=== PATIENT | female | born 1935 | race Caucasian/White ===

== ENCOUNTER 2017-07-31 14:18 | Day surgery (SDC) | payer MEDICARE ==
[~2017-07-31 14:18] MED LIST: AMLO10 PO; ASPI81TA82 PO; LEVO50TA4 PO; METF500 PO; ZOCO10TA PO
[2017-07-31] MEDS ORDERED: ASPI-516 CHEW (14:38)
[2017-07-31] MEDS ORDERED: AMLO10TA2 PO (14:38)
[2017-07-31] MEDS ORDERED: LISI2.5T3 PO (14:38)
[2017-07-31] MEDS ORDERED: SIMV20TA PO (14:38)
[2017-07-31] MEDS ORDERED: LEVO50TA4 PO (14:38)
[2017-07-31 14:43] VITALS: BP 163/69; PULSE 77; RESP 20; TEMP 97.6; O2SAT 96
--- NOTE | 2017-07-31 16:10 | RADRPT ---
EXAM DATE/TIME: 07/31/2017 14:46 [facility] COMPARISON : No previous studies available for comparison. 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 Patient reportedly was diagnosed with hepatocellular carcinoma (no biops y) approximately 11 years ago and underwent at least one TACE procedure. Surveillance MRI examination s have demonstrated stable hepatic lesions with most recent MRI examination demonstrating a new exoph ytic 13 mm segment 5 mass. AFP is 11.7. LFT is normal. She has no complaints. ECOG 0. PAST MEDICAL HISTORY : 1. Hepatitis C. 2. Hypercholesterolemia. 3. Hypertension. 4. Diabetes type 2. 5. Carcinoma, hepatocellular. PAST SURGICAL HISTORY : 1. Cholecystectomy. 2. TACE 3. LIVER BIOPSY SOCIAL HISTORY : No alcohol use. Tobacco; ALLERGIES: 1. NKDA MEDICATIONS: 1. [id number] mg q.d. 2. Zocor (Simvastatin) 20 mg q.d. 3. Prinivil (Lisinopril) 2.5 mg q.d. 4. AMLODIPINE 10 mg q.d. 5. LEVTHYROXINE 50 mcg q.d. IMAGING STUDIES: MRI examinations dated 06/17/2017 and 11/03/2016 were reviewed. Again, there are 3 stable bilobar hepat ic lesions and a new 13 mm exophytic segment 5 lesion with enhancing capsule. Portal vein is patent. ASSESSMENT: 81 year-old female with history of hep C cirrhosis. Her HEP C has been treated but she now has a new concerning 13 mm mass in segment 5 of the liver. She was remotely (approx 11 years ago) treated with TACE for hepatocellular carcinoma although this was not biopy proven and details are not available. S he has an excellent functional status and intact liver function. She is also highly motivated to purs ue treatment. She's an ideal candidate for locoregional treatment. Given the small size, recommend st arting with RADHA-TACE procedure with potential ablation depending on findings during hepatic angiograp hy and her response. Extensive conversation regarding treatment options as well as risks and benefits of locoregional garima tment. All questions were answered. PLAN: Superselective RADHA-TACE embolization. TIME SPENT: 30 minutes. Jorden Campoverde MD on July 31, 2017 at 15:42 Board Certified Radiologist. This report was verified electronically.
== END 2017-07-31 15:36 | disposition home or self-care (01) ==
LOC: HROP 14:18 → HRIP 14:19 → HROP 15:36
PROVIDERS: ATTEND Internal Medicine Hematology & Oncology
DX: C22.0 Liver cell carcinoma (principal)

== ENCOUNTER 2017-08-06 06:31 | Day surgery (SDC) | payer MEDICARE ==
[2017-08-06] VITALS (10 sets, daily range): BP systolic 119–183; BP diastolic 66–83; PULSE 67–86; RESP 17–20; TEMP 97.6–98; O2SAT 95–98
[~2017-08-06] VITALS: Ht 154.9 cm; Wt 47.7 kg
[~2017-08-06 06:31] MED LIST changes: -AMLO10 PO; +AMLO10TA2 PO; +ASPI-516 CHEW; -ASPI81TA82 PO; +LISI2.5T3 PO; -METF500 PO; +SIMV20TA PO; -ZOCO10TA PO
[2017-08-06] MEDS ORDERED: IODIXANOL 320 MG/ML 50 ML VIAL (for RAD SPEC) I-ARTERIAL ONE (06:32)
[2017-08-06] MEDS ORDERED: SODIUM CHLOR 0.9% 1000 ML INJ 1,000 ML IV SCH (07:15)
[2017-08-06 07:42] LABS: AUTOMATED NEUTROPHIL # 5.9 TH/MM3 (1.8-7.7); BASOPHIL % 0.4 % (0.0-2.0); EOSINOPHIL # 0.1 TH/MM3 (0-0.4); EOSINOPHIL % 1.8 % (0.0-4.0); HEMATOCRIT 46.2 % (35.0-46.0); HEMOGLOBIN 15.3 GM/DL (11.6-15.3); LYMPHOCYTE # 1.5 TH/MM3 (1.0-4.8); MEAN CELL VOLUME 88.2 FL (80.0-100.0); MEAN CORPUSCULAR HEMOGLOBIN 29.3 PG (27.0-34.0); MEAN CORPUSCULAR HGB CONC 33.2 % (32.0-36.0); MEAN PLATELET VOLUME 8.2 FL (7.0-11.0); MONO % 8.4 % (0.0-8.0); MONOCYTE # 0.7 TH/MM3 (0-0.9); NEUT % 71.4 % (16.0-70.0); PLATELET COUNT 238 TH/MM3 (150-450); RED BLOOD COUNT 5.24 MIL/MM3 (4.00-5.30); RED CELL DISTRIBUTION WIDTH 14.1 % (11.6-17.2); WHITE BLOOD COUNT 8.2 TH/MM3 (4.0-11.0)
[2017-08-06 07:52] LABS: PROTHROMBIN TIME - PATIENT 10.1 SEC (9.8-11.6)
[2017-08-06 08:09] LABS: BICARBONATE 24.1 MEQ/L (21.0-32.0); CALCIUM 9.3 MG/DL (8.5-10.1); CREATININE 0.8 MG/DL (0.50-1.00)
[2017-08-06] MEDS: SODIUM CHLOR 0.9% 1000 ML INJ 1,000 ML IV SCH ×2 (10:24→17:40)
[2017-08-06] MEDS ORDERED: DOXOrubicin HCL 10 MG/5 ML INJ OTHER ONE (10:30)
[2017-08-06] MEDS ORDERED: PANTOPRAZOLE SODIUM 40 MG VIAL IV PUSH ONE (11:00)
[2017-08-06] MEDS ORDERED: ceFAZolin 1,000 MG/NS 100 ML IV ONE ×2 (11:00)
[2017-08-06] MEDS ORDERED: DEXAMETHASONE SOD PHOS 20 MG/5 ML VIAL IV ONE (11:00)
[2017-08-06] MEDS ORDERED: KETOROLAC TROMETHAMINE 30 MG/ML (IVP) VIAL IV PUSH ONE (11:00)
[2017-08-06] MEDS ORDERED: ONDANSETRON HCL 4 MG/2 ML VIAL IV PUSH ONE (11:00)
[2017-08-06] MEDS ORDERED: MIDAZOLAM HCL 2 MG/2 ML VIAL ONE (11:19)
[2017-08-06] MEDS ORDERED: VERAPAMIL HCL 5 MG/2 ML VIAL ONE (11:19)
[2017-08-06] MEDS ORDERED: fentaNYL CITRATE 250 MCG/5 ML AMP ONE (11:19)
[2017-08-06] MEDS ORDERED: NITROGLYCERIN 1000 MCG/5 ML VIAL OTHER ONE (12:30)
--- NOTE | 2017-08-06 15:56 | PD.RAD ---
Post Procedure Progress Note Pre Procedure Diagnosis: (1) HCC (hepatocellular carcinoma) Post Procedure Diagnosis: (1) HCC (hepatocellular carcinoma) Procedure Date: Aug 06, 2017 Supervising Radiologist: Jorden Campoverde Anesthesia: Conscious Sedation Plan of Activity Patient to Unit: [facility] Patient Condition: Good See PACS Report for procedural detail/treatment Jorden Campoverde MD Aug 06, 2017 15:56
[2017-08-06] MEDS ORDERED: MORPHINE SULFATE 2 MG/ML SYRINGE IV PUSH PRN (16:00)
[2017-08-06] MEDS ORDERED: PILL SPLITTER OTHER PRN (16:00)
[2017-08-06] MEDS ORDERED: ONDANSETRON HCL 4 MG/2 ML VIAL IV PUSH PRN (16:00)
--- NOTE | 2017-08-06 16:11 | PD.CONS ---
HPI Service [facility] Consult Requested By Dr. Baltazar Reason for Consult Medical management Primary Care Physician Chavo Mccallum MD, PhD Diagnoses: History of Present Illness The patient is a 81-year-old female with past medical history of hepatitis C and hepatocellular carcinoma who is presenting to the hospital for voluntary chemoembolization by interventional radiology. The patient says that she had her hepatitis C treated but that led to the development of hepatocellular carcinoma. She follows with her oncologist regularly and during a routine visit a new mass was found on the liver. That was about 6 weeks ago. The patient has been experiencing discomfort in that area which gets worse at night. She also has been endorsing abdominal distention. She was referred to interventional radiology and the procedure was scheduled for 08/06/2017. The patient tolerated the procedure well. She denies any pain at this time. She tolerated a diet without difficulty. Discussed with nursing at the bedside. Review of Systems Except as stated in HPI: all other systems reviewed are Neg Past Family Social History Allergies: Coded Allergies: No Known Allergies (Unverified Allergy, Unknown, 08/06/17) Past Medical History Hepatitis C s/p treatment HTN HLP Hypothyroidism Cholecystitis Hepatocellular carcinoma DM2 Past Surgical History TACE procedure Appendectomy Cholecystectomy Liver surgery Breast biopsy Active Ordered Medications Current Medications Medications (Trade) Dose Ordered Sig/Carmen Route Start Time Stop Time Status Last Admin Sodium Chloride 1,000 ml @ 100 mls/hr Q10H IV 08/06/17 07:15 08/06/17 17:14 08/06/17 07:15 Sodium Chloride 1,000 ml @ 150 mls/hr Q6H40M IV 08/06/17 11:00 08/06/17 10:24 (Norvasc) 10 mg DAILY PO 08/07/17 09:00 (Synthroid) 50 mcg DAILY@0600 PO 08/07/17 06:00 (Prinivil) 2.5 mg DAILY PO 08/07/17 09:00 (Pravachol) 40 mg DAILY PO 08/07/17 09:00 (Pill Splitter) 1 ea UNSCH PRN OTHER 08/06/17 16:00 (Zofran Inj) 4 mg Q6HR PRN IV PUSH 08/06/17 16:00 (Morphine Inj) 2 mg Q4H PRN IV PUSH 08/06/17 16:00 (Protonix Inj) 40 mg Q24H IV PUSH 08/07/17 11:00 Family History The patient said that her father from some abdominal organ disease Social History The patient still smokes cigarettes. She has a glass of wine occasionally. Physical Exam Vital Signs Vital Signs Date Time Temp Pulse Resp B/P (MAP) Pulse Ox O2 Delivery O2 Flow Rate FiO2 08/06/17 15:30 Room Air 98 08/06/17 15:30 79 20 153/81 (105) 98 08/06/17 15:00 74 20 135/75 (95) 98 08/06/17 15:00 Nasal Cannula 2.00 98 08/06/17 14:30 70 20 119/69 (86) 98 08/06/17 14:30 Nasal Cannula 2.00 98 08/06/17 14:05 74 20 140/82 (101) 97 08/06/17 13:50 67 20 141/67 (91) 98 08/06/17 13:35 Nasal Cannula 2.00 98 08/06/17 13:35 97.6 70 20 144/66 (92) 98 08/06/17 07:29 Room Air 96 08/06/17 06:54 97.9 79 20 149/74 (99) 96 Physical Exam GENERAL: This is a well-nourished, well-developed patient, in no apparent distress. SKIN: No rashes, ecchymoses or lesions. Cool and dry. HEAD: Atraumatic. Normocephalic. No temporal or scalp tenderness. EYES: Pupils equal round and reactive. Extraocular motions intact. No scleral icterus. No injection or drainage. ENT: Nose without bleeding, purulent drainage or septal hematoma. Throat without erythema, tonsillar hypertrophy or exudate. Uvula midline. Airway patent. NECK: Trachea midline. No JVD or lymphadenopathy. Supple, nontender, no meningeal signs. CARDIOVASCULAR: Regular rate and rhythm without murmurs, gallops, or rubs. RESPIRATORY: Clear to auscultation. Breath sounds equal bilaterally. No wheezes , rales, or rhonchi. GASTROINTESTINAL: Abdomen soft, non-tender, nondistended. No hepato-splenomegaly , or palpable masses. No guarding. MUSCULOSKELETAL: Extremities without clubbing, cyanosis, or edema. No joint tenderness, effusion, or edema noted. NEUROLOGICAL: Awake and alert. Cranial nerves II through XII intact. Motor and sensory grossly within normal limits. Five out of 5 muscle strength in all muscle groups. Normal speech. PSYCH: Mood and affect appropriate. Laboratory Laboratory Tests Test 08/06/17 07:32 White Blood Count 8.2 Red Blood Count 5.24 Hemoglobin 15.3 Hematocrit 46.2 Mean Corpuscular Volume 88.2 Mean Corpuscular Hemoglobin 29.3 Mean Corpuscular Hemoglobin Concent 33.2 Red Cell Distribution Width 14.1 Platelet Count 238 Mean Platelet Volume 8.2 Neutrophils (%) (Auto) 71.4 Lymphocytes (%) (Auto) 18.0 Monocytes (%) (Auto) 8.4 Eosinophils (%) (Auto) 1.8 Basophils (%) (Auto) 0.4 Neutrophils # (Auto) 5.9 Lymphocytes # (Auto) 1.5 Monocytes # (Auto) 0.7 Eosinophils # (Auto) 0.1 Basophils # (Auto) 0.0 CBC Comment DIFF FINAL Differential Comment Prothrombin Time 10.1 Prothromb Time International Ratio 1.0 Activated Partial Thromboplast Time 28.3 Blood Urea Nitrogen 19 Creatinine 0.80 Random Glucose 121 Calcium Level 9.3 Sodium Level 136 Potassium Level 3.8 Chloride Level 104 Carbon Dioxide Level 24.1 Anion Gap 8 Estimat Glomerular Filtration Rate 69 Result Diagram: 08/06/1732 08/06/1732 Assessment and Plan Assessment and Plan New liver mass The patient was brought to the hospital for voluntary chemoembolization performed by interventional radiology. The patient tolerated the procedure well. - Keep the patient for observation. - Follow-up with interventional radiology and oncology as an outpatient. - Pain control as needed. - ADAT. - check LFTs in the AM. DM Glucose well controlled. - monitor with an insulin sliding scale. HTN Blood pressure mildly elevated. - resume home regimen. - pain control. PPx: Per IR Discussed Condition With Pt, nurse Kvng Miller DO Aug 06, 2017 16:11
--- NOTE | 2017-08-06 16:14 | RADRPT ---
EXAM DATE/TIME: 08/06/2017 11:58 [facility] COMPARISON: No previous studies available for comparison. INDICATIONS : 81 year-old female with history of hepatitis C cirrhosis and 13 mm segment 5 mass. She was seen and e valuated in the interventional radiology clinic and now presents for RADHA-TACE chemoembolization. MEDICAL HISTORY : Hep B and C HTN Liver cancer DM Smoker SURGICAL HISTORY : Tonsillectomy Appy Ovarian sx ENCOUNTER: Initial ACUITY: 2 weeks PAIN SCORE: 0/10 LOCATION: N/A FLUORO TIME: 20.0 minutes IMAGE SERIES: 8 ACCESS SITE: Left Radial artery SEDATION TIME: 90 minutes CONTRAST: 1.) 70 cc Visipaque (iodixanol) MEDICATION(S): 1.) 2 mg midazolam (Versed) IV 2.) 100 mcg fentanyl (Sublimaze) IV 3.) 400 mcg Nitroglycerine IV 4.) 4 mg Verapamil IV DEVICE(S): 1.) Right hepatic artery chemo (adriamycin) injection PROCEDURE : 1. Ultrasound-guided puncture of the access site. 2. Conscious sedation with continuous EKG and oximetry monitoring. 3. Selective catheter placement in the celiac artery with selective angiography 4. Selective catheter placement in the common hepatic artery with selective angiography 5. Subselective catheter placement in the right hepatic artery was subselected and angiography 6. RADHA TACE superselective embolization of segment 5 right hepatic artery The risks, benefits and alternatives to the procedure were explained and verbal and written consent w as obtained. The site was prepped in sterile fashion. Full sterile technique was used, including ca p, mask, sterile gloves and gown and a large sterile sheet. Hand hygiene and 2% chlorhexidine and/or betadine/alcohol prep was utilized per protocol for cutaneous antisepsis. Sterile gel and sterile p robe cover were utilized for ultrasound guidance. The skin and subcutaneous tissues were infiltrated with local anesthetic solution. With ultrasound and fluoroscopic guidance the prescribed common femoral artery was punctured and a va scular sheath was placed. A 5 Indonesian Mendiola catheter was advanced into the celiac artery and angiograp hy was performed. This demonstrated standard celiac anatomy with evidence for prior embolization of t he gastroduodenal artery. Catheter was advanced into the common hepatic artery and angiography was ag ain performed. This demonstrated an enhancing mass in the inferior right lobe of the liver correspond ing to the known 13 mm exophytic mass in segment 5. Renegade microcatheter was then advanced into the posterior right hepatic artery branch and angiography performed in multiple obliquities. This again confirmed the findings although there was less prominent enhancement. Next, the posterior right hepat ic branches were embolized with approximately 20% of the 75-150 m Carlee beads infused with 75 mg Kristel amycin. Embolization was performed to stasis. Followup angiography demonstrated stasis of flow in the M1 branches with patent flow in the remaining right hepatic branches. Wires and catheters were then removed. Sheath was removed and hemostasis obtained with TR band device. Conscious sedation was performed with the prescribed dosages and duration as above in the presence of an independent trained radiology nurse to assist in the monitoring of the patient. EKG and oximetry remained stable throughout the procedure. CONCLUSION: 1. Uncomplicated RADHA TACE embolization of right hepatic artery branches, as above. Jorden Campoverde MD on August 06, 2017 at 15:36 Board Certified Radiologist. This report was verified electronically.
[2017-08-06] MEDS ORDERED: DEXTROSE 50% IN WATER 50 ML VIAL(D50) IV PUSH PRN (16:45)
[2017-08-06] MEDS ORDERED: GLUCAGON 1 MG/ML VIAL OTHER PRN (16:45)
[2017-08-06] MEDS: INSULIN ASPART SUPPLEMENTAL SCALE SQ SCH ×2 (17:58→21:14)
[2017-08-07] MEDS: SODIUM CHLOR 0.9% 1000 ML INJ 1,000 ML IV SCH (00:20)
[2017-08-07 00:50] VITALS: BP 140/72; PULSE 83; RESP 18; TEMP 97.4; O2SAT 98
[2017-08-07 04:49] VITALS: BP 127/81; PULSE 87; RESP 18; TEMP 98.6; O2SAT 97
[2017-08-07] MEDS ORDERED: LEVOTHYROXINE SODIUM 50 MCG TAB PO SCH (06:00)
[2017-08-07 08:00] VITALS: BP 171/74; PULSE 80; RESP 16; TEMP 97.8; O2SAT 96
[2017-08-07] MEDS: INSULIN ASPART SUPPLEMENTAL SCALE SQ SCH ×2 (08:00→12:00)
[2017-08-07] MEDS ORDERED: LISINOPRIL 5 MG TAB PO SCH (09:00)
[2017-08-07] MEDS ORDERED: PRAVASTATIN SOD 40 MG TAB PO SCH (09:00)
[2017-08-07] MEDS ORDERED: PANTOPRAZOLE SOD 40 MG DELAYED RELEASE TAB PO SCH (09:45)
[2017-08-07] MEDS ORDERED: PANTOPRAZOLE SODIUM 40 MG VIAL IV PUSH SCH (11:00)
[2017-08-07 12:00] VITALS: BP 144/70; PULSE 88; RESP 16; TEMP 98.1; O2SAT 97
[2017-08-07] MEDS ORDERED: ONDANSETRON ODT 4 MG TAB PO PRN (14:30)
--- NOTE | 2017-08-07 14:32 | HHI.PR ---
Subjective Remarks The patient complained of abdominal cramping. She said she had some nausea too. She has not had much of an appetite. She still wants to go home today. Discussed with nursing at the bedside. Objective Vitals Vital Signs Date Time Temp Pulse Resp B/P (MAP) Pulse Ox O2 Delivery O2 Flow Rate FiO2 08/07/17 12:00 98.1 88 16 144/70 (94) 97 08/07/17 11:03 20 08/07/17 08:00 97.8 80 16 171/74 (106) 96 08/07/17 04:49 98.6 87 18 127/81 (96) 97 08/07/17 00:50 97.4 83 18 140/72 (94) 98 08/06/17 21:10 Room Air 08/06/17 20:00 98.0 81 18 178/79 (112) 95 08/06/17 16:30 76 20 143/72 (95) 96 08/06/17 16:30 Room Air 96 08/06/17 16:00 Room Air 96 08/06/17 16:00 76 20 143/72 (95) 96 08/06/17 16:00 97.8 86 17 183/83 (116) 97 08/06/17 15:30 Room Air 98 08/06/17 15:30 79 20 153/81 (105) 98 08/06/17 15:00 74 20 135/75 (95) 98 08/06/17 15:00 Nasal Cannula 2.00 98 08/06/17 14:30 70 20 119/69 (86) 98 08/06/17 14:30 Nasal Cannula 2.00 98 I/O 08/06/17 08/06/17 08/06/17 08/07/17 08/07/17 08/07/17 07:00 15:00 23:00 07:00 15:00 23:00 Intake Total 600 ml 480 ml Balance 600 ml 480 ml Intake Oral 600 ml 480 ml # Voids 2 4 # Bowel Movements 0 Result Diagram: 08/06/17 0732 08/06/17 0732 Imaging Last Impressions Embolization, Transcatheter 08/06/17 0000 Signed Impressions: Service Date/Time: July 11:58 - CONCLUSION: 1. Uncomplicated RADHA TACE embolization of right hepatic artery branches, as above. Jorden Campoverde MD Objective Remarks GENERAL: This is a well-nourished, well-developed patient, in no apparent distress. SKIN: No rashes, ecchymoses or lesions. Cool and dry. HEAD: Atraumatic. Normocephalic. No temporal or scalp tenderness. EYES: Pupils equal round and reactive. Extraocular motions intact. No scleral icterus. No injection or drainage. ENT: Nose without bleeding, purulent drainage or septal hematoma. Throat without erythema, tonsillar hypertrophy or exudate. Uvula midline. Airway patent. NECK: Trachea midline. No JVD or lymphadenopathy. Supple, nontender, no meningeal signs. CARDIOVASCULAR: Regular rate and rhythm without murmurs, gallops, or rubs. RESPIRATORY: Clear to auscultation. Breath sounds equal bilaterally. No wheezes , rales, or rhonchi. GASTROINTESTINAL: Abdomen soft, slightly tender to palpation. No hepato- splenomegaly, or palpable masses. No guarding. MUSCULOSKELETAL: Extremities without clubbing, cyanosis, or edema. No joint tenderness, effusion, or edema noted. NEUROLOGICAL: Awake and alert. Cranial nerves II through XII intact. Motor and sensory grossly within normal limits. Five out of 5 muscle strength in all muscle groups. Normal speech. PSYCH: Teary-eyed. Procedures RADHA TACE embolization of right hepatic artery branches Medications and IVs Current Medications Medications (Trade) Dose Ordered Sig/Carmen Route Start Time Stop Time Status Last Admin (Norvasc) 10 mg DAILY PO 08/07/17 09:00 08/07/17 08:40 (Synthroid) 50 mcg DAILY@0600 PO 08/07/17 06:00 08/07/17 06:23 (Prinivil) 2.5 mg DAILY PO 08/07/17 09:00 08/07/17 08:40 (Pravachol) 40 mg DAILY PO 08/07/17 09:00 08/07/17 08:40 (Pill Splitter) 1 ea UNSCH PRN OTHER 08/06/17 16:00 (NovoLOG SUPPLEMENTAL SCALE) 1 ACHS SLIDING SCALE SQ 08/06/17 17:00 08/06/17 21:14 (D50w (Vial) Inj) 50 ml UNSCH PRN IV PUSH 08/06/17 16:45 (Glucagon Inj) 1 mg UNSCH PRN OTHER 08/06/17 16:45 (Roxicodone) 5 mg Q4H PRN PO 08/07/17 10:00 08/07/17 10:03 (Protonix) 40 mg DAILY PO 08/07/17 09:45 08/07/17 10:02 (Roxicodone) 10 mg Q4H PRN PO 08/07/17 12:45 (Zofran Odt) 4 mg Q4H PRN PO 08/07/17 14:30 A/P Assessment and Plan New liver mass The patient was brought to the hospital for voluntary chemoembolization performed by interventional radiology. S/p RADHA TACE embolization of right hepatic artery branches. The patient tolerated the procedure well. Has been experiencing abdominal cramping. - Follow-up with interventional radiology and oncology as an outpatient. - Pain control as needed. Increased dose of oxycodone. - ADAT. - check LFTs. DM Glucose well controlled. - monitor with an insulin sliding scale. HTN Blood pressure mildly elevated, likely exacerbated by pain. - resume home regimen. - pain control. PPx: Per IR Discharge Planning Hopefully d/c home later today Kvng Miller DO Aug 07, 2017 14:32
[2017-08-07 15:47] LABS: ALBUMIN 4.1 GM/DL (3.4-5.0); ALT (GPT) 42 U/L (10-53); AST (GOT) 51 U/L (15-37); BICARBONATE 23.6 MEQ/L (21.0-32.0); BLOOD UREA NITROGEN 14 MG/DL (7-18); CALCIUM 9.5 MG/DL (8.5-10.1); CHLORIDE 104 MEQ/L (98-107); CREATININE 1.07 MG/DL (0.50-1.00); GLOMERULAR FILTRATION RATE 49 ML/MIN (>89); GLUCOSE,RANDOM 153 MG/DL (74-106); SODIUM (NA) 138 MEQ/L (136-145)
[2017-08-07 15:50] LABS: ALKALINE PHOSPHATASE 96 U/L (45-117); TOTAL BILIRUBIN ADULT 0.4 MG/DL (0.2-1.0); TOTAL PROTEIN 9.4 GM/DL (6.4-8.2)
[2017-08-07 16:00] VITALS: BP 103/55; PULSE 73; RESP 15; TEMP 97.2; O2SAT 97
--- NOTE | 2017-08-07 16:45 | HHI.DCPOC ---
Discharge Care Plan Diagnosis: (1) Liver mass (2) HCC (hepatocellular carcinoma) Goals to Promote Your Health * To prevent worsening of your condition and complications * To maintain your health at the optimal level Directions to Meet Your Goals Take your medications as prescribed Follow your dietary instruction Follow activity as directed Keep your appointments as scheduled Take your immunizations and boosters as scheduled If your symptoms worsen call your PCP, if no PCP go to Urgent Care Center or Emergency Room Smoking is Dangerous to Your Health. Avoid second hand smoke Call the 24-hour hour crisis hotline for domestic abuse at Kvng Miller DO Aug 07, 2017 16:45
== END 2017-08-07 18:54 | disposition home health service (06) ==
LOC: HRIP 06:31 → HROP 06:31 → N06A 17:09 → HROP 08-07 18:54
PROVIDERS: ATTEND Internal Medicine Hematology & Oncology
DX: C22.0 Liver cell carcinoma (principal); B19.20 Unspecified viral hepatitis C without hepatic coma; E11.9 Type 2 diabetes mellitus without complications; I10 Essential (primary) hypertension; E03.9 Hypothyroidism, unspecified; E78.5 Hyperlipidemia, unspecified; F17.210 Nicotine dependence, cigarettes, uncomplicated; Z79.4 Long term (current) use of insulin
CPT/HCPCS: 36247; 36248; 37243; 75726; 75774; 76937; 80048; 80053; 82948; 85025; 85610; 85730; 96420; 99152; 99153; C1769; C1884; C1887; C1894; C9113; J0690; J1100; J1815; J1885; J2250; J2405; J3010; J7030; J9000; Q9967